=== PATIENT | female | born 1930 | race Caucasian/White ===

== ENCOUNTER 2017-01-19 08:52 | Inpatient (IN) | payer MEDICARE ==
[~2017-01-19] VITALS: Ht 152.4 cm; Wt 48.0 kg
[2017-01-19] MEDS ORDERED: VITA1000 PO (09:21)
[2017-01-19] MEDS ORDERED: LEVO75TA3 PO (09:21)
[2017-01-19] MEDS ORDERED: OMEG100037 PO (09:21)
[2017-01-19] MEDS ORDERED: MULTTAB67 PO (09:21)
[2017-01-19] MEDS ORDERED: DENO60P SQ (10:09)
[2017-01-26] MEDS ORDERED: ePHEDrine/NS 25 MG/5 ML SYR IV ONE (08:40)
[2017-01-26] MEDS ORDERED: PROPOFOL 200 MG/20 ML AMP IV ONE (08:40)
[2017-01-26] MEDS ORDERED: LACTATED RINGER'S 1000 ML INJ 1,000 ML IV ONE (08:41)
[2017-01-26] MEDS ORDERED: ONDANSETRON HCL 4 MG/2 ML VIAL IV PUSH ONE (08:41)
[2017-01-26] MEDS ORDERED: PHENYLEPH/NS 1000 MCG/10 ML SYR IV ONE (08:41)
[2017-01-26] MEDS ORDERED: KETOROLAC TROMETHAMINE 60 MG/2 ML (IM) VIAL IM ONE (08:41)
[2017-01-26] MEDS ORDERED: INSULIN HUMAN REGULAR 1,000 UNITS/10 ML VIAL SQ PRN (12:30)
[2017-01-26] MEDS ORDERED: ALVIMOPAN 12 MG CAPSULE - On Call PO SCH (12:30)
[2017-01-26] MEDS ORDERED: METRONIDAZOLE 500 MG/100 ML ISONTONIC SOLN IV SCH (12:30)
[2017-01-26] MEDS ORDERED: DEXT 5%-NACL 0.9% 1000 ML INJ 1,000 ML IV SCH (12:30)
[2017-01-26] MEDS ORDERED: METOPROLOL TARTRATE 25 MG TAB PO PRN (12:30)
[2017-01-26] MEDS ORDERED: ceFAZolin 1,000 MG/NS 100 ML IV SCH ×2 (12:30)
[2017-01-26] MEDS ORDERED: LACTATED RINGER'S 1000 ML IV SCH (13:00)
[2017-01-26] MEDS ORDERED: SODIUM CHLORID 0.9% 500 ML IV SCH (13:00)
[2017-01-26 13:15] VITALS: BP 143/72; PULSE 67; RESP 20; TEMP 98; O2SAT 99
[2017-01-26] MEDS ORDERED: BUPIVACAINE HCL PF 0.5% 30 ML VIAL ONE ×2 (13:27→14:19)
[2017-01-26] MEDS ORDERED: GLUCAGON 1 MG/ML VIAL ONE (13:27)
--- NOTE | 2017-01-26 13:43 | PD.HP.UP ---
H&P Update Note The Pre-Admit History and Physical Examination regarding the above named patient was reviewed (including, but not limited to, vital signs, heart, lungs, co-morbid conditions), and upon re-examination it is noted that: the patient's condition has not significantly changed since the last examination. Guy Bhatt MD Jan 26, 2017 13:43
[2017-01-26] MEDS ORDERED: DEXAMETHASONE SOD PHOS 4 MG/ML VIAL ONE (14:26)
[2017-01-26] MEDS ORDERED: MIDAZOLAM HCL 2 MG/2 ML VIAL ONE (14:26)
[2017-01-26] MEDS ORDERED: FAMOTIDINE 20 MG/2 ML VIAL ONE (14:26)
[2017-01-26] MEDS ORDERED: SUGAMMADEX SODIUM 200 MG/2 ML VIAL IV PUSH ONE ×2 (15:38)
[2017-01-26] MEDS ORDERED: ACETAMINOPHEN 1000 MG/100 ML VIAL IV ONE (15:38)
[2017-01-26] MEDS ORDERED: POTASSIUM CHLOR 20 MEQ PREMIX 100 ML IV PRN (16:45)
[2017-01-26] MEDS ORDERED: ONDANSETRON HCL 4 MG/2 ML VIAL IV PRN (16:45)
[2017-01-26] MEDS ORDERED: ENALAPRILAT 2.5 MG/2 ML VIAL IV PRN (16:45)
[2017-01-26] MEDS ORDERED: ENALAPRILAT 1.25 MG/ML VIAL IV PRN (16:45)
[2017-01-26] MEDS ORDERED: MORPHINE SULFATE 30 MG/30 ML PCA IV SCH (16:45)
[2017-01-26] MEDS ORDERED: Post-op Orders (for Pharmacy) MISC XX ONE (16:45)
[2017-01-26] MEDS ORDERED: KETOROLAC TROMETHAMINE 30 MG/ML (IVP) VIAL IVP PRN (16:45)
[2017-01-26] MEDS ORDERED: BUPIVACAINE HCL PF 0.5% 30 ML VIAL NB SCH (16:45)
[2017-01-26] MEDS ORDERED: SODIUM CHLORIDE 0.9% FLUSH 5 ML FLUSH IVF PRN (16:45)
[2017-01-26] MEDS ORDERED: NALOXONE HCL 0.4 MG/ML AMP IV PRN (16:45)
[2017-01-26] MEDS ORDERED: NON-FORMULARY DRUG (Denosumab Inj (Prolia Inj) 60 MG) SQ SCH (16:45)
[2017-01-26] MEDS ORDERED: ACETAMINOPHEN/HYDROcodone 325 MG/5 MG TAB PO PRN ×2 (16:45)
[2017-01-26] MEDS ORDERED: ACETAMINOPHEN 325 MG TAB PO PRN (16:45)
[2017-01-26] MEDS ORDERED: BENZOCAINE 6 MG/MENTHOL 10 MG LOZENGE SUCK-ON PRN (16:45)
[2017-01-26] MEDS ORDERED: POTASSIUM CHLOR 40 MEQ PREMIX 100 ML IV PRN (16:45)
--- NOTE | 2017-01-26 16:45 | HHI.PR ---
Immediate Post Op Note Procedure Date: Jan 26, 2017 Pre Op Diagnosis: Diverticulitis Post Op Diagnosis: same Surgeon: Guy Bhatt Acid Etch Operator(s): Za Procedure: Exploratory lap + LAR, colonoscopy Findings: seg of RS narrowed, tight coiled in pelvis, ext tic ds, liver/GB normal. 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
[2017-01-26] MEDS ORDERED: fentaNYL CITRATE 250 MCG/5 ML AMP ONE (16:49)
[2017-01-26] MEDS ORDERED: MORPHINE SULFATE 4 MG/ML INJ ONE (16:49)
[2017-01-26] MEDS ORDERED: D5-1/2 NS + KCL 20 MEQ INJ 1,000 ML ONE (16:54)
[2017-01-26] MEDS: D5-NS + KCL 20 MEQ INJ 1,000 ML IV SCH ×2 (17:00→23:40)
[2017-01-26] MEDS ORDERED: PILL SPLITTER OTHER PRN (17:15)
[2017-01-26] MEDS ORDERED: DO NOT ADM ANY ANTICOAGULANT DRUGS XX PRN (17:15)
[2017-01-26] MEDS ORDERED: *morphine SULFATE 8 MG/ML PERIprocedure ONLY ONE (17:59)
[2017-01-26] MEDS: METOCLOPRAMIDE HCL 10 MG/2 ML VIAL IVS SCH (20:47)
[2017-01-26] MEDS: SODIUM CHLORIDE 0.9% FLUSH 5 ML FLUSH IVF SCH (20:47)
[2017-01-26] MEDS: metroNIDAZOLE 500 MG INJ 100 ML IV SCH (22:00)
[2017-01-26] MEDS: PCA - TOTAL MG MORPHINE DELIVERED PER SHIFT SCH (22:00)
[2017-01-26 22:52] VITALS: BP 117/62; PULSE 82; RESP 16; TEMP 98; O2SAT 98
[2017-01-26 23:00] VITALS: PULSE 76
[2017-01-27] VITALS (20 sets, daily range): BP systolic 121–155; BP diastolic 51–81; PULSE 76–100; RESP 16–20; TEMP 97.9–98.7; O2SAT 93–100
[2017-01-27] MEDS: metroNIDAZOLE 500 MG INJ 100 ML IV SCH ×2 (05:34→13:15)
[2017-01-27] MEDS: PCA - TOTAL MG MORPHINE DELIVERED PER SHIFT SCH (06:00)
[2017-01-27] MEDS: LEVOTHYROXINE SODIUM 75 MCG TAB PO SCH (06:19)
[2017-01-27 07:05] LABS: AUTOMATED NEUTROPHIL # 25.2 TH/MM3 (1.8-7.7); HEMATOCRIT 38.4 % (35.0-46.0); HEMO FLAGS DIFF FINAL; LYMPH % 1.6 % (9.0-44.0); LYMPHOCYTE # 0.4 TH/MM3 (1.0-4.8); MEAN CELL VOLUME 90.2 FL (80.0-100.0); MEAN CORPUSCULAR HEMOGLOBIN 29.6 PG (27.0-34.0); MEAN CORPUSCULAR HGB CONC 32.9 % (32.0-36.0); MONO % 4.6 % (0.0-8.0); NEUT % 93.8 % (16.0-70.0); PLATELET COUNT 214 TH/MM3 (150-450); RED BLOOD COUNT 4.26 MIL/MM3 (4.00-5.30); RED CELL DISTRIBUTION WIDTH 13.3 % (11.6-17.2); WHITE BLOOD COUNT 26.9 TH/MM3 (4.0-11.0)
[2017-01-27 07:11] LABS: BICARBONATE 20.5 MEQ/L (21.0-32.0); POTASSIUM 4.2 MEQ/L (3.5-5.1)
[2017-01-27 07:28] LABS: CALCIUM-PROTEIN CORRECTED 7.7 MG/DL (8.5-10.1)
[2017-01-27] MEDS: D5-NS + KCL 20 MEQ INJ 1,000 ML IV SCH ×2 (07:28→15:23)
[2017-01-27] MEDS: SODIUM CHLORIDE 0.9% FLUSH 5 ML FLUSH IVF SCH ×2 (08:48→21:51)
[2017-01-27] MEDS: ALVIMOPAN 12 MG CAPSULE - Post-op dosing PO SCH ×2 (08:48→22:07)
[2017-01-27] MEDS: PANTOPRAZOLE SODIUM 40 MG VIAL IVP SCH (08:48)
[2017-01-27] MEDS: METOCLOPRAMIDE HCL 10 MG/2 ML VIAL IVS SCH ×2 (08:48→21:50)
[2017-01-27] MEDS: PANTOPRAZOLE SOD 40 MG DELAYED RELEASE TAB PO SCH (08:48)
[2017-01-27] MEDS: FUROSEMIDE 20 MG/2 ML VIAL IV PUSH SCH (18:17)
[2017-01-27] MEDS ORDERED: ALVIMOPAN 12 MG CAPSULE PO SCH (21:00)
[2017-01-28 03:00] VITALS: BP 134/83; PULSE 92; RESP 14; TEMP 99; O2SAT 93
[2017-01-28] MEDS: D5-NS + KCL 20 MEQ INJ 1,000 ML IV SCH ×2 (04:20→15:03)
[2017-01-28] MEDS: LEVOTHYROXINE SODIUM 75 MCG TAB PO SCH (06:04)
[2017-01-28] MEDS: FUROSEMIDE 20 MG/2 ML VIAL IV PUSH SCH ×2 (06:05→18:22)
[2017-01-28 06:49] LABS: AUTOMATED NEUTROPHIL # 14.8 TH/MM3 (1.8-7.7); BASOPHIL % 0.2 % (0.0-2.0); EOSINOPHIL % 0.1 % (0.0-4.0); HEMATOCRIT 35.7 % (35.0-46.0); HEMO FLAGS DIFF FINAL; LYMPH % 7.3 % (9.0-44.0); LYMPHOCYTE # 1.2 TH/MM3 (1.0-4.8); MEAN CELL VOLUME 88.9 FL (80.0-100.0); MEAN CORPUSCULAR HEMOGLOBIN 29.2 PG (27.0-34.0); MEAN CORPUSCULAR HGB CONC 32.8 % (32.0-36.0); MONO % 4.7 % (0.0-8.0); NEUT % 87.7 % (16.0-70.0); PLATELET COUNT 196 TH/MM3 (150-450); RED BLOOD COUNT 4.01 MIL/MM3 (4.00-5.30); RED CELL DISTRIBUTION WIDTH 13.5 % (11.6-17.2); WHITE BLOOD COUNT 16.9 TH/MM3 (4.0-11.0)
[2017-01-28 07:00] VITALS: BP 126/73; PULSE 81; RESP 20; TEMP 98.6; O2SAT 95
[2017-01-28 07:25] LABS: BICARBONATE 21.3 MEQ/L (21.0-32.0); POTASSIUM 3.8 MEQ/L (3.5-5.1)
--- NOTE | 2017-01-28 07:40 | HHI.PR ---
Subjective Remarks C/R Surg POD # 2 afebrile, VSS UOI good confused at night, better this AM Objective - Vital Signs Date Time Temp Pulse Resp B/P Pulse Ox O2 Delivery O2 Flow Rate FiO2 01/28/17 05:07 16 01/28/17 03:00 99.0 92 134/83 93 01/27/17 11:00 Nasal Cannula 2.00 Result Diagram: 01/28/17 0553 01/28/17 0553 Objective Remarks PE alert Abd - softer, wound dry, VIVIAN min A/P Assessment and Plan Imp: decr IVF PT start PO DC narcotics, Guy Billy MD Jan 28, 2017 07:40
[2017-01-28 07:54] LABS: CALCIUM-PROTEIN CORRECTED 7.9 MG/DL (8.5-10.1)
[2017-01-28] MEDS: PANTOPRAZOLE SODIUM 40 MG VIAL IVP SCH (09:00)
[2017-01-28] MEDS: ALVIMOPAN 12 MG CAPSULE - Post-op dosing PO SCH ×2 (09:57→20:07)
[2017-01-28] MEDS: PANTOPRAZOLE SOD 40 MG DELAYED RELEASE TAB PO SCH (09:58)
[2017-01-28] MEDS: SODIUM CHLORIDE 0.9% FLUSH 5 ML FLUSH IVF SCH ×2 (09:58→20:07)
[2017-01-28 11:00] VITALS: BP 120/84; PULSE 79; RESP 18; TEMP 98.4; O2SAT 96
[2017-01-28 15:00] VITALS: BP 130/75; PULSE 77; RESP 16; TEMP 98.2; O2SAT 96
[2017-01-28 19:00] VITALS: BP 131/67; PULSE 86; RESP 24; TEMP 98.7; O2SAT 95
[2017-01-28 23:00] VITALS: BP 132/70; PULSE 85; RESP 26; TEMP 99.8; O2SAT 96
[2017-01-29 03:00] VITALS: BP 145/79; PULSE 95; RESP 24; TEMP 99.1; O2SAT 92
[2017-01-29] MEDS: LEVOTHYROXINE SODIUM 75 MCG TAB PO SCH (06:00)
[2017-01-29] MEDS: FUROSEMIDE 20 MG/2 ML VIAL IV PUSH SCH ×2 (06:00→17:57)
[2017-01-29 07:00] VITALS: BP 135/75; PULSE 85; RESP 20; TEMP 99.1; O2SAT 97
[2017-01-29] MEDS: SODIUM CHLORIDE 0.9% FLUSH 5 ML FLUSH IVF SCH ×2 (09:00→20:05)
[2017-01-29] MEDS: PANTOPRAZOLE SODIUM 40 MG VIAL IVP SCH (09:00)
[2017-01-29] MEDS: PANTOPRAZOLE SOD 40 MG DELAYED RELEASE TAB PO SCH (09:12)
[2017-01-29] MEDS: ALVIMOPAN 12 MG CAPSULE - Post-op dosing PO SCH ×2 (09:12→20:05)
[2017-01-29 11:00] VITALS: BP 146/88; PULSE 86; RESP 20; TEMP 98; O2SAT 98
[2017-01-29 15:00] VITALS: BP 134/78; PULSE 81; RESP 20; TEMP 100; O2SAT 98
[2017-01-29 19:00] VITALS: BP 143/79; PULSE 84; RESP 24; TEMP 99; O2SAT 97
--- NOTE | 2017-01-29 22:02 | HHI.PR ---
Subjective Remarks C/R Surg POD # 3 afebrile, VSS UO good +BM Objective - Vital Signs Date Time Temp Pulse Resp B/P Pulse Ox O2 Delivery O2 Flow Rate FiO2 01/29/17 15:00 100.0 81 20 134/78 98 01/27/17 11:00 Nasal Cannula 2.00 Result Diagram: 01/28/17 0553 01/28/17552 Objective Remarks PE alert Abd - softer, wound dry, VIVIAN min A/P Assessment and Plan Imp: decr IVF PT start PO, adv DC narcotics, Guy Billy MD Jan 29, 2017 22:02
[2017-01-29 23:00] VITALS: BP 141/82; PULSE 82; RESP 24; TEMP 98.9; O2SAT 96
[2017-01-30 01:00] VITALS: BP 142/68; PULSE 82; RESP 22; TEMP 97.8; O2SAT 97
[2017-01-30] MEDS: FUROSEMIDE 20 MG/2 ML VIAL IV PUSH SCH ×2 (05:44→17:27)
[2017-01-30] MEDS: LEVOTHYROXINE SODIUM 75 MCG TAB PO SCH (05:45)
[2017-01-30 08:00] VITALS: BP 120/62; PULSE 77; RESP 16; TEMP 99.9; O2SAT 97
[2017-01-30] MEDS: SODIUM CHLORIDE 0.9% FLUSH 5 ML FLUSH IVF SCH ×2 (09:00→21:03)
[2017-01-30] MEDS: PANTOPRAZOLE SODIUM 40 MG VIAL IVP SCH (09:00)
[2017-01-30] MEDS: PANTOPRAZOLE SOD 40 MG DELAYED RELEASE TAB PO SCH (09:16)
[2017-01-30] MEDS: ALVIMOPAN 12 MG CAPSULE - Post-op dosing PO SCH ×2 (09:16→21:02)
--- NOTE | 2017-01-30 09:27 | HHI.DCPOC ---
Discharge Care Plan Diagnosis: (1) Status post partial resection of colon Your Health Problems Are: Incision/Drains Appetite Changes Irregular Bowel Function Exercise Tolerance Loss of Movements Goals to Promote Your Health * To prevent worsening of your condition and complications * To maintain your health at the optimal level Directions to Meet Your Goals Take your medications as prescribed Follow your dietary instruction Follow activity as directed Keep your appointments as scheduled Take your immunizations and boosters as scheduled If your symptoms worsen call your PCP, if no PCP go to Urgent Care Center or Emergency Room Smoking is Dangerous to Your Health. Avoid second hand smoke Call the 24-hour hour crisis hotline for domestic abuse at Marcelo Mendenhall MD Jan 30, 2017 09:27
[2017-01-30] MEDS ORDERED: WALKER WHEELS/F1 MIS (09:28)
--- NOTE | 2017-01-30 09:32 | HHI.PR ---
Subjective Remarks Says her confusion is clearing now. Tolerating PO. No N or V Objective Vital Signs Date Time Temp Pulse Resp B/P Pulse Ox O2 Delivery O2 Flow Rate FiO2 01/30/17 08:00 99.9 77 16 120/62 97 01/30/17 01:00 97.8 82 22 142/68 97 01/29/17 23:00 98.9 82 24 141/82 96 01/29/17 19:00 99.0 84 24 143/79 97 01/29/17 15:00 100.0 81 20 134/78 98 01/29/17 11:00 98.0 86 20 146/88 98 I/O 01/29/17 01/29/17 01/29/17 01/30/17 01/30/17 01/30/17 07:00 15:00 23:00 07:00 15:00 23:00 Intake Total 690 ml 1200 ml 240 ml 0 ml Output Total 1430 ml 100 ml 1910 ml 700 ml Balance -740 ml -100 ml -710 ml -460 ml 0 ml Intake Oral 240 ml 1200 ml 240 ml 0 ml IV Total 450 ml 0 ml Output Urine Total 1400 ml 100 ml 1900 ml 700 ml Drainage Total 30 ml 10 ml # Voids 1 1 # Bowel Movements 1 1 0 Result Diagram: 01/28/17 0553 01/28/17 0553 Objective Remarks Abd: soft,flat,wound clean,drain removed. Assessment and Plan Assessment and Plan Stable. D/C today or tomorrow with walker. Marcelo Mendenhall MD Jan 30, 2017 09:32
[2017-01-30 12:00] VITALS: BP 135/62; PULSE 81; RESP 17; TEMP 98.1; O2SAT 99
[2017-01-30 16:00] VITALS: BP 128/63; PULSE 78; RESP 17; TEMP 98.7; O2SAT 100
[2017-01-30 20:09] VITALS: BP 130/60; PULSE 82; RESP 17; TEMP 97.7; O2SAT 97
[2017-01-30 23:53] VITALS: BP 132/62; PULSE 69; RESP 16; TEMP 97.9; O2SAT 97
[2017-01-31] MEDS: FUROSEMIDE 20 MG/2 ML VIAL IV PUSH SCH (05:25)
[2017-01-31] MEDS: LEVOTHYROXINE SODIUM 75 MCG TAB PO SCH (05:25)
--- NOTE | 2017-01-31 05:50 | MP ---
cc: FROY HEBERT M.D. DATE OF SURGERY: 01/26/2017 PREOPERATIVE DIAGNOSIS: Diverticulitis with obstruction. PROCEDURE Exploratory laparotomy with proctosigmoidectomy, low pelvic anastomosis and intraoperative colonoscopy. POSTOPERATIVE DIAGNOSIS 1. 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 2. Normal colonoscopy. SURGEON Dr. Hebert ASSESSMENT Dr. Fox Mendenhall. PROCEDURE The patient was placed in the supine position. After adequate general anesthesia her legs were placed in Wallace stirrups and supported appropriately. The abdomen and perineum were then prepped with Betadine solution and draped in the usual sterile fashion. With Dr. Mendenhall's assistance the abdomen was opened through an infraumbilical transverse incision dividing the rectus muscles with electrocautery. Exploration revealed a segment of rectosigmoid which was coiled and stuck down into the pelvis with extensive diverticular disease and chronic fibrosis narrowing. The proximal colon was palpated very carefully and felt to be pretty unremarkable. The small bowel was run from the ligament of Treitz down to the ileocecal valve and felt to be normal. The liver and gallbladder were normal. The stomach and duodenum were unremarkable. The uterus and ovaries were appropriate for the patient's age. Some fibroids of the uterus were present. Great vessels were of normal caliber, somewhat calcified. 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 The right ureter appeared to be normal. First the sigmoid colon was mobilized medially by dividing along the white line of Toldt. The left and a double ureter was carefully identified and preserved. Dissection then proceeded up the left gutter freeing the left colon off the retroperitoneum in Gerota's fascia. Dissection proceeded up to and included the splenic flexure. The right retroperitoneal space was then opened and the bowel dissected off the presacral fascia. The pedicle for the superior hemorrhoidal vessels identified and divided between Kellys obtaining hemostasis with Vicryl ties. Dissection then proceeded down to the pelvis mobilizing this diverticular segment out of the pelvis and the right pelvic sidewall. The bowel was then straightened and found to be very narrowed and chronically thickened. At a point below the inflammatory process the bowel appeared to be more normal in caliber and softer suitable for anastomosis. The proximal rectum, the mesorectum was divided using electrocautery and finally the bowel divided using a pursestring suture device and a Pawan clamp. The bowel was then sized to reach the rectal pouch without tension and with good blood supply dividing the marginal artery at the appropriate point. The bowel was then divided in the sigmoid using a pursestring suture device and a Pawan clamp. The end of the bowel was sized to accept an EEA stapling anvil and this was secured with a pursestring suture. Dr. Mendenhall then inserted the EEA stapling instrument transanally and under direct vision was brought up to the end of the rectal pouch and the pursestring suture tied. The stapler was then reassembled, the bowel line properly, the staple closed and fired. Upon withdrawal two complete doughnuts of tissue was seen. The colonoscope was then inserted and Dr. Mendenhall advanced the scope through the proximal colon until the cecum was identified. The ileocecal valve was normal. No vascular abnormalities were noted in the cecum. The colonoscope was then gradually withdrawn visualizing the mucosal surface throughout the distal colon. No other inflammatory changes were seen. No polyps were noted. The anastomosis was visualized. Insufflation confirmed an airtight anastomosis. The abdomen was then irrigated copiously with normal saline. Adequate hemostasis was achieved. A Aquiles-Bang drain placed down to the presacral space and brought up through a stab wound. The right lower quadrant secured to the skin with a nylon suture. The transverse incision was closed anatomically in two layers using #1 PDS sutures to reapproximate the respective fascial layers. On-Q catheters were placed into the rectus sheath on both sides and brought up through subcutaneous tunnels above the transverse incision. The subcu tissues were irrigated copiously and the skin closed with a running subcuticular Vicryl suture. Wound area washed with normal saline and dried, sterile dressing of Telfa and gauze applied. The patient tolerated the procedure quite well and was brought to recovery room in stable condition. Sponge and needle counts were correct at the end of the procedure. MD SALINA Kerns/SONJA /10:18 PM /5:34 AM
[2017-01-31] MEDS: PANTOPRAZOLE SOD 40 MG DELAYED RELEASE TAB PO SCH (07:55)
[2017-01-31] MEDS: PANTOPRAZOLE SODIUM 40 MG VIAL IVP SCH (07:55)
[2017-01-31] MEDS: ALVIMOPAN 12 MG CAPSULE - Post-op dosing PO SCH (07:55)
[2017-01-31] MEDS: SODIUM CHLORIDE 0.9% FLUSH 5 ML FLUSH IVF SCH (07:57)
[2017-01-31 08:00] VITALS: BP 118/59; PULSE 73; RESP 16; TEMP 98.8; O2SAT 95
--- NOTE | 2017-01-31 09:21 | HHI.PR ---
Subjective Remarks Lucid. No confusion. Flatus,no stool yet. Eating breakfast. Wants to go home. Objective Vital Signs Date Time Temp Pulse Resp B/P Pulse Ox O2 Delivery O2 Flow Rate FiO2 01/31/17 08:00 98.8 73 16 118/59 95 01/30/17 23:53 97.9 69 16 132/62 97 01/30/17 20:09 97.7 82 17 130/60 97 01/30/17 16:00 98.7 78 17 128/63 100 01/30/17 12:00 98.1 81 17 135/62 99 I/O 01/30/17 01/30/17 01/30/17 01/31/17 01/31/17 01/31/17 07:00 15:00 23:00 07:00 15:00 23:00 Intake Total 240 ml 0 ml 380 ml 280 ml Output Total 700 ml Balance -460 ml 0 ml 380 ml 280 ml Intake Oral 240 ml 0 ml 380 ml 280 ml IV Total 0 ml 0 ml 0 ml Output Urine Total 700 ml # Voids 1 2 3 # Bowel Movements 0 Result Diagram: 01/28/17 0553 01/28/17 0553 Objective Remarks Abd: soft,flat,wound clean,right side steri strips. No redness. Assessment and Plan Assessment and Plan Stable. D/C today with walker. Family has borrowed walker also. Marcelo Mendenhall MD Jan 31, 2017 09:21
--- NOTE | 2017-03-24 07:37 | MD ---
cc: FROY HEBERT M.D., MARK ADMISSION DATE: 01/26/2017 DISCHARGE DATE: 01/31/2017 ADMITTING DIAGNOSIS Diverticulitis with obstruction PROCEDURE January 26, 2017 exploratory laparotomy with proctosigmoidectomy, low pelvic anastomosis and intraoperative colonoscopy. DISCHARGE DIAGNOSES Obstructing diverticulitis HISTORY OF PRESENT ILLNESS Ms. Cox is an 86-year-old female who has been in relatively good health noticing several months of malaise, anorexia and weight loss. She had increased frequency of her stools with urgency and incontinence. Outpatient evaluation revealed only limited colonoscopy due to a stricture and narrowing of the sigmoid colon. Gastrografin study also showed a very tight narrowing and stricture of the sigmoid colon. She did have significant diverticular disease, but there was also concern for some possible carcinomatous change with her weight loss. She was admitted at this time for definitive surgical resection. Please see the history and physical for a more complete past medical and surgical history. PERTINENT PHYSICAL This is a very thin older female in no acute distress. ABDOMEN: Soft and benign, some tympany. No rebound or guarding. No masses. ANAL INSPECTION: Revealed benign canal. Digital exam revealed fair to good tone with some thickening and fullness in the pelvic floor. No blood on the finger. No mucosal irregularities. HOSPITAL COURSE After admission, the patient was brought to the operating room on the December at which point she underwent an exploratory laparotomy with proctosigmoidectomy, low pelvic anastomosis and intraoperative colonoscopy. She was found to have a significant area of diverticulitis with narrowing and obstruction. The colon, however, was prepped and she underwent a primary anastomosis. Follow up colonoscopy showed no other inflammation or polyps in the proximal colon. She tolerated the procedure well. Postoperatively, she was stabilized in the intensive care unit. She did require quite a bit of physical therapy and respiratory therapy for postoperative weakness and respiratory atelectasis. Her GI tract function returned fairly slowly and her diet was advanced slowly. She did have some encephalopathy which was attributed to postop narcotics. The patient continued to gain some strength and was able to be weaned off her IV fluids. Her stool function gradually returned and mental status cleared. She was doing well enough to be considered for discharge home on January 31, 2017. Final pathology report did reveal a section of a rectosigmoid colon with significant diverticular narrowing and obstruction without any evidence of malignancy. DISCHARGE INSTRUCTIONS The patient was discharged eating a regular diet. She was encouraged to ambulate daily avoiding any heavy lifting or straining. All preop medications were to be resumed. The patient will be seen in the office in one weeks' time for routine follow-up. Any problems prior to the scheduled office visit, the patient was encouraged to call for more urgent attention. MD SALINA Kerns/PORTIA /7:57 PM /7:30 AM
== END 2017-01-31 11:16 | disposition home or self-care (01) | DRG 331 ==
LOC: HSDI 01-26 11:53 → HCIS 01-26 22:37 → N07B 01-30 01:08
PROVIDERS: ADMIT Colon & Rectal Surgery; ATTEND Colon & Rectal Surgery
PROC: 0DBN0ZZ Excision of Sigmoid Colon, Open Approach (ICD-10-PCS; 2017-01-26)
PROC: 0DJD8ZZ Inspection of Lower Intestinal Tract, Via Natural or Artificial Opening Endoscopic (ICD-10-PCS; 2017-01-26)
PROC: 0DBP0ZZ Excision of Rectum, Open Approach (ICD-10-PCS; principal; 2017-01-26 14:30)
DX: K57.32 Diverticulitis of large intestine without perforation or abscess without bleeding (principal); D25.9 Leiomyoma of uterus, unspecified; E03.9 Hypothyroidism, unspecified; Q62.5 Duplication of ureter; R41.0 Disorientation, unspecified
CPT/HCPCS: 80048; 84155; 85025; 86850; 86900; 86901; 88307; 94150; C9113; J0131; J0690; J1100; J1610; J1885; J1940; J2250; J2270; J2370; J2405; J2765; J3010; J3480; J7120

== ENCOUNTER → 2017-01-19 | Outpatient (CLI) | payer MEDICARE ==
[~2017-01-19] MED LIST: DENO60P SQ; LEVO75TA3 PO; LORT5TAB PO; MULTTAB67 PO; OMEG100037 PO; SYNT25TA PO; VITA1000 PO; WALKER WHEELS/F1 MIS
[2017-01-19 10:05] LABS: BLOOD, URINE NEG (NEG); COMMENT (UR) CULT NOT INDICATED; CULTURE IF INDICATED CULT NOT INDICATED; GLUCOSE,URINE NEG (NEG); KETONE, URINE NEG (NEG); NITRITE,URINE NEG (NEG); SQUAMOUS EPITHELIAL CELL URINE <1 /hpf (0-5); URINE COLOR YELLOW (YELLW/STRAW)
[2017-01-19 10:09] LABS: AUTOMATED NEUTROPHIL # 2.4 TH/MM3 (1.8-7.7); BASOPHIL % 0.7 % (0.0-2.0); EOSINOPHIL # 0.2 TH/MM3 (0-0.4); EOSINOPHIL % 3.9 % (0.0-4.0); HEMATOCRIT 42.5 % (35.0-46.0); HEMO FLAGS DIFF FINAL; LYMPH % 43.9 % (9.0-44.0); LYMPHOCYTE # 2.6 TH/MM3 (1.0-4.8); MEAN CELL VOLUME 88.6 FL (80.0-100.0); MEAN CORPUSCULAR HGB CONC 33.8 % (32.0-36.0); NEUT % 40.5 % (16.0-70.0); PLATELET COUNT 236 TH/MM3 (150-450); RED CELL DISTRIBUTION WIDTH 13.4 % (11.6-17.2); WHITE BLOOD COUNT 5.8 TH/MM3 (4.0-11.0)
[2017-01-19 10:16] LABS: APTT (PATIENT) 24.8 SEC (24.3-30.1); PROTHROMBIN TIME - PATIENT 10.8 SEC (9.8-11.6)
--- NOTE | 2017-01-19 10:17 | RADRPT ---
EXAM DATE/TIME: 01/19/2017 10:01 [facility] COMPARISON: No previous studies available for comparison. INDICATIONS : Evaluate for penumonia, pneumothorax, or communicable disease. Pre op for colonoscopy. MEDICAL HISTORY : Gastroesophageal reflux disease. Osteoporosis. SURGICAL HISTORY : Tonsillectomy. Cataract. Left knee berger cyst removal. Hammer toe repair. ENCOUNTER: Initial ACUITY: 1 day PAIN SCORE: 0/10 LOCATION: chest FINDINGS: The examination demonstrates an advanced rotoscoliosis of the thoracic and lumbar spine. This measure s approximately 24 and thoracic level. The heart is normal in size. The lungs are clear. CONCLUSION: 1. Advanced rotatory scoliosis. 2. No acute cardiopulmonary findings. Felix Reyes MD on January 19, 2017 at 10:12 Board Certified Radiologist. This report was verified electronically.
[2017-01-19 10:37] LABS: ALT (GPT) 27 U/L (10-53); ANION GAP 4 MEQ/L (5-15); AST (GOT) 17 U/L (15-37); BICARBONATE 30.7 MEQ/L (21.0-32.0); BLOOD UREA NITROGEN 18 MG/DL (7-18); CHLORIDE 106 MEQ/L (98-107); GLOMERULAR FILTRATION RATE 73 ML/MIN (>89); GLUCOSE,FASTING 88 MG/DL (74-99); SODIUM (NA) 141 MEQ/L (136-145)
[2017-01-19 10:40] LABS: ALKALINE PHOSPHATASE 51 U/L (45-117); TOTAL BILIRUBIN ADULT 0.7 MG/DL (0.2-1.0)
--- NOTE | 2017-01-19 12:07 | EKG ---
Date Performed: 01/19/2017 Time Performed: 09:13:54 PTAGE: 86 years EKG: Sinus rhythm WITH FIRST DEGREE AV BLOCK BORDERLINE LEFT AXIS DEVIATION ABNORMAL ECG PREVIOUS TRACING : 05/18/2010 20.02 DOCTOR: Enzo Thayer Interpretating Date/Time 01/19/2017 12:05:52
== END ==
LOC: CPRE 08:44
PROVIDERS: ATTEND Colon & Rectal Surgery
DX: K56.69 Other intestinal obstruction (principal); R94.31 Abnormal electrocardiogram [ECG] [EKG]
CPT/HCPCS: 36415; 71020; 80053; 81001; 85025; 85610; 85730; 93005

== ENCOUNTER 2017-11-20 10:17 | Emergency (ER) | payer MEDICARE ==
[~2017-11-20 10:17] MED LIST changes: -LORT5TAB PO; -SYNT25TA PO
[2017-11-20 10:26] VITALS: BP 129/60; PULSE 75; RESP 16; TEMP 98.2; O2SAT 99
--- NOTE | 2017-11-20 11:00 | PD ---
HPI Chief Complaint: Fall Time Seen by Provider: 10:37 Travel History International Travel<30 days: No Contact w/Intl Traveler<30days: No Traveled to known affect area: No History of Present Illness HPI 86-year-old female presents the emergency department status post chemical fall last evening. Patient states he simply lost her balance and fell. She now has pain in the left wrist with swelling and mild deformity. She denies numbness or tingling. Pain is worse with any type of movement. She denies elbow pain, shoulder pain, or other injury. She denies hitting her head or loss of consciousness. She has no headache, nausea, or vomiting. She has no neurological deficits. Pain with movement is 8 out of 10. Asked is a 2 out of 10. She has no known drug allergies. PFSH Past Medical History Cancer: No Cardiovascular Problems: No Diabetes: No Diminished Hearing: No Endocrine: Yes Gastrointestinal Disorders: Yes (COLON BLOCKAGE) GERD: Yes Genitourinary: No Hepatitis: No Hiatal Hernia: No Immune Disorder: No Musculoskeletal: Yes (OSTEOPOROSIS) Neurologic: No Psychiatric: No Reproductive: No Respiratory: No Immunizations Current: No Thyroid Disease: Yes Influenza Vaccination: Yes ?: Not Menopausal: Yes Past Surgical History Abdominal Surgery: Yes (COLON SURGERY 12/2016 ) AICD: No Body Medical Devices: PLATE IN RIGHT WRIST Cardiac Surgery: No Ear Surgery: No Endocrine Surgery: No Eye Surgery: Yes (CATARACTS) Genitourinary Surgery: No Gynecologic Surgery: No Joint Replacement: No Neurologic Surgery: No Oral Surgery: Yes (T/A) Pacemaker: No Thoracic Surgery: No Tonsillectomy: Yes Other Surgery: Yes Social History Alcohol Use: Yes (1 PER DAY) Tobacco Use: No Substance Use: No Allergies-Medications (Allergen,Severity, Reaction): Coded Allergies: No Known Allergies (Verified , 01/19/17) Reported Meds & Prescriptions Reported Meds & Active Scripts Active Walker with Front Wheels (Device) 1 Mis Mis 1 Ea .ROUTE DIRECTED Reported Prolia Inj (Denosumab) 60 Mg/Ml Inj 60 Mg SQ Q365 DAYS Fish Oil 1000 mg (Solo-3 Fatty Acids) 1 Cap Cap 1 Cap PO DAILY Vitamin D-1000 (Cholecalciferol) 1,000 Unit Tab 1,000 Units PO DAILY Multiple Vitamin 1 Tab 1 Tab PO DAILY Levothyroxine (Levothyroxine Sodium) 75 Mcg Tab 0.5 Tab PO DAILY Review of Systems Except as stated in HPI: all other systems reviewed are Neg General / Constitutional: No: Fever Eyes: No: Visual changes HENT: No: Headaches Cardiovascular: No: Chest Pain or Discomfort Respiratory: No: Shortness of Breath Gastrointestinal: No: Abdominal Pain Genitourinary: No: Dysuria Musculoskeletal: Positive: Arthralgias, Limited ROM, Pain Skin: No Rash Neurologic: No: Weakness Psychiatric: No: Depression Endocrine: No: Polydipsia Hematologic/Lymphatic: No: Easy Bruising Physical Exam Narrative GENERAL: Patient is alert and oriented sitting at the bedside. She appears in mild distress. SKIN: Warm and dry. Color. Normal turgor. There is no abrasion or open wound. She has ecchymosis located at the left wrist. HEAD: Atraumatic. Normocephalic. EYES: Pupils equal and round. No scleral icterus. No injection or drainage. ENT: No nasal bleeding or discharge. Mucous membranes pink and moist. NECK: Trachea midline. No JVD. CARDIOVASCULAR: Regular rate and rhythm. RESPIRATORY: No accessory muscle use. Clear to auscultation. Breath sounds equal bilaterally. GASTROINTESTINAL: Abdomen soft, non-tender, nondistended. Hepatic and splenic margins not palpable. MUSCULOSKELETAL: Extremities without clubbing, cyanosis, or edema. Mild deformity suggestive of a radial fracture of the left wrist with decreased range of motion secondary to pain. Neurovascular exam is normal distal to the injury and left hand. There is no other significant findings. NEUROLOGICAL: Awake and alert. No obvious cranial nerve deficits. Motor grossly within normal limits. Five out of 5 muscle strength in the arms and legs. Normal speech. PSYCHIATRIC: Appropriate mood and affect; insight and judgment normal. Data Data Last Documented VS Vital Signs Date Time Temp Pulse Resp B/P (MAP) Pulse Ox O2 Delivery O2 Flow Rate FiO2 11/20/17 10:52 Room Air 11/20/17 10:26 98.2 75 16 129/60 (83) 99 Orders Orders Wrist, Complete ([id number]) (11/20/17 10:49) Ice/Cold Pack (11/20/17 10:49) Splinting (11/20/17 ) Sling Cradle Arm (11/20/17 ) Wrist, Limited (Ap&Lat) (11/20/17 11:26) Ed Discharge Order (11/20/17 11:57) [facility] Medical Decision Making Medical Screen Exam Complete: Yes Emergency Medical Condition: Yes Differential Diagnosis Mechanical fall. Left wrist sprain. Left wrist fracture. Narrative Course Ice pack is applied to the injured area. X-rays of the left wrist are ordered X-ray shows comminuted fracture of the distal radius with slight compaction and angulation. Call was placed to Dr. Tinoco, and the patient's x-rays are discussed. Patient denied recommends sugar tong with attempted reduction, and if able to be reduced and follow up with Dr. Clemens. Sugar tong splint with reduction performed. Post reduction film shows excellent alignment and reduction. Patient is placed in a sling. She is to take tramadol 50 mg every 6 hours when necessary pain #20. Patient called Dr. Clemens's office for follow-up. Patient is to maintain the splint and sling at all times until follow-up. Diagnosis Primary Impression: Fracture of radius, distal, left, closed Qualified Codes: S52.532A - Colles' fracture of left radius, initial encounter for closed fracture Referrals: Jay Clemens MD call for appointment Patient Instructions: General Instructions, How to Use a Sling (GEN), Splint Care (DC) Additional Instructions: Sugar tong splint with reduction performed. Post reduction film shows excellent alignment and reduction. Patient is placed in a sling. She is to take tramadol 50 mg every 6 hours when necessary pain #20. Patient called Dr. Clemens's office for follow-up. Patient is to maintain the splint and sling at all times until follow-up. Med/Other Pt SpecificInfo: Prescription(s) given Disposition: 01 DISCHARGE HOME Condition: Stable Guy Lozano Nov 20, 2017 11:00
--- NOTE | 2017-11-20 11:12 | RADRPT ---
EXAM DATE/TIME: 11/20/2017 10:59 [facility] COMPARISON: No previous studies available for comparison. INDICATIONS : Yes Injured after falling. MEDICAL HISTORY : None. SURGICAL HISTORY : None. ENCOUNTER: Initial ACUITY: 1 day PAIN SCORE: 6/10 LOCATION: Left Wrist. FINDINGS: Distal radial fracture is present which extends intra-articularly into the radiocarpal joint and ther e is impaction of the metaphysis into the epiphysis angulated and displaced dorsally. CONCLUSION: Distal radial fracture. Fabricio Ling MD on November 20, 2017 at 11:09 Board Certified Radiologist. This report was verified electronically.
--- NOTE | 2017-11-20 11:29 | PD ---
Physical Exam Date Seen by Provider: Nov 20, 2017 Time Seen by Provider: 11:25 Narrative Patient presents with a left wrist injury which occurred last night. Data Data Last Documented VS Vital Signs Date Time Temp Pulse Resp B/P (MAP) Pulse Ox O2 Delivery O2 Flow Rate FiO2 11/20/17 10:52 Room Air 11/20/17 10:26 98.2 75 16 129/60 (83) 99 Orders Orders Wrist, Complete ([id number]) (11/20/17 10:49) Ice/Cold Pack (11/20/17 10:49) Splinting (11/20/17 ) Sling Cradle Arm (11/20/17 ) Wrist, Limited (Ap&Lat) (11/20/17 11:26) MDM Supervised Visit with DONG: Yes Narrative Course I, Dr. Parra, have reviewed the advance practice practitioner's documentation and am in agreement, met with the patient face to face, made the diagnosis, and the medical decision making was done by me. *My assessment and Findings: Lucid. No acute distress. Last Impressions Wrist X-Ray 11/20/17 1049 Signed Impressions: Service Date/Time: Monday, November 20, 2017 10:59 - CONCLUSION: Distal radial fracture. K. Hugh Ling MD Please see Juan Lozano PA-C's note for results of laboratory and radiographic evaluation, ED course, final diagnosis and disposition Procedures Procedure Narrative Splint was applied by the tech under my direct supervision. Good movement and capillary refill distal to the injury following splinting. Patient reports that the splint feels comfortable. Condition: Stable Daniela Parra MD Nov 20, 2017 11:29
--- NOTE | 2017-11-20 11:51 | RADRPT ---
EXAM DATE/TIME: 11/20/2017 11:32 [facility] COMPARISON: WRIST LEFT COMPLETE ([id number]), November 20, 2017, 10:59. INDICATIONS : Post reduction left wrist fracture MEDICAL HISTORY : None. SURGICAL HISTORY : None. ENCOUNTER: Initial ACUITY: 1 day PAIN SCORE: 5/10 LOCATION: Left wrist FINDINGS: Casting material is in place and there is reduction of previously seen angulation and displacement of the fracture fragments. CONCLUSION: Reduction of previously seen angulation and displacement of the fracture fragments. Fabricio Ling MD on November 20, 2017 at 11:48 Board Certified Radiologist. This report was verified electronically.
[2017-11-20] MEDS ORDERED: TRAM50TA PO (12:01)
== END 2017-11-20 12:18 | disposition home or self-care (01) ==
LOC: NEPD 10:17
DX: S52.532A Colles' fracture of left radius, initial encounter for closed fracture (principal); M81.0 Age-related osteoporosis without current pathological fracture; K21.9 Gastro-esophageal reflux disease without esophagitis
CPT/HCPCS: 25605; 73100; 73110